=== PATIENT | male | born 1970 | race Caucasian/White ===

== ENCOUNTER → 2018-01-28 | Outpatient (CLI) | payer MEDICARE, OTHER ==
[~2018-01-28] MED LIST: GADOBUTROL 10 MMOL/10 ML (GADAVIST) VIAL IV ONE
--- NOTE | 2018-01-28 13:04 | Diagnostic Imaging Report ---
PROCEDURE: MR imaging of the brain with and without contrast. TECHNIQUE: Multiplanar, multisequence MR imaging of the brain was performed with and without contrast. INDICATION: Trigeminal neuralgia and headache. FINDINGS: Ventricles and sulci are within normal limits for size. Byrnes and white matter signal intensities are unremarkable. There is no restricted diffusion to indicate an infarct. There is no abnormal mass effect or shift of midline structures. No abnormal contrast enhancement is identified. The visualized paranasal sinuses are clear. 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 IMPRESSION: No acute abnormality or enhancing lesion is identified. Dictated by: Dictated on workstation # [id number]
== END ==
LOC: RAD 11:11
PROVIDERS: ATTEND Ophthalmology
DX: G50.0 Trigeminal neuralgia (principal)
CPT/HCPCS: 70553